=== PATIENT | male | born 1965 | race Caucasian/White ===

== ENCOUNTER 2021-07-05 22:25 | Emergency (ER) | payer OTHER ==
[~2021-07-05] VITALS: Ht 165.1 cm; Wt 101.0 kg
[2021-07-06 00:24] LABS: BASOPHILS % 0.5 % (0.0-2.0); EOSINOPHILS % 1.9 % (0.0-5.0); HEMATOCRIT. 40.6 % (42.0-52.0); LYMPHOCYTES % 28.1 % (20.0-50.0); MEAN CORPUSCULAR HEMOGLOBIN 29.8 pg (28.0-32.0); MEAN CORPUSCULAR VOLUME 86.2 fL (80.0-94.0); MEAN PLATELET VOLUME 7.7 fl (7.4-10.4); MONOCYTES % 4.8 % (2.0-8.0); NEUTROPHILS % 64.7 % (40.0-76.0); PLATELET 287 x1000/uL (130-400); RED BLOOD CELL COUNT 4.71 mill/uL (4.7-6.1); RED CELL DISTRIBUTION WIDTH 13.9 % (11.6-14.6)
[2021-07-06] MEDS ORDERED: SODI88SP18 BOTHNSTRLS (00:48)
[2021-07-06 01:06] VITALS: BP 128/81
== END 2021-07-06 01:08 | disposition home or self-care (01) ==
LOC: ER 22:25
DX: R04.0 Epistaxis (principal)
CPT/HCPCS: 36415; 85025; 99283